=== PATIENT | male | born 1965 | race Caucasian/White ===

== ENCOUNTER 2019-06-18 10:44 | Inpatient (IN) ==
[2019-06-18] MEDS ORDERED: 0.9 % SODIUM CHLORIDE 1,000 ML IV ONE ×2 (11:05→14:13)
--- NOTE | 2019-06-18 11:08 | Emergency Department Note ---
SOB HPI - General Chief Complaint: Shortness of Breath/Dyspnea Stated Complaint: Productive Cough, Congestion Time Seen by Provider: 06/18/19 10:56 Source: patient Mode of arrival: ambulatory Limitations: no limitations - History of Present Illness Patient reports congestion and cough and shortness of breath for about a week. He has had a temperature 99.9. Was seen here last evening and then had a phone call with recommendation for him to come back to the emergency room. There is a left lower lobe pneumonia that has been diagnosed. It was thought to be viral a nd he was sent home both from [facility] a number of days ago as well as last evening. Patient reports being exposed to influenza B from his son last week. He thinks probably he has gotten over influenza now has a pneumonia. He has taken Advil and Robitussin. He has been experiencing fevers, chills, sweats. He denies sore throat or runny nose. He has had some increase in phlegm with purulence and blood in it as well as feeling short of breath and coughing. REVIEW OF SYSTEMS: Has had some nausea. No vomiting. Has had some mucousy gagging up from almost like vomiting but more just gagging up some phlegm. Has had mucousy diarrhea today. Has had some lightheaded/dizziness. - Related Data Previous Rx's Medication Instructions Recorded Levofloxacin [Levaquin] 750 mg PO DAILY #10 tab 06/18/19 Allergies Allergy/AdvReac Type Severity Reaction Status Date / Time No Known Drug Allergies Allergy Unverified 06/17/19 20:05 Past Medical History - Past Medical History Medical history: Denies: DM - Social History smoking status: Former smoker Alcohol use: Reports: Occasionally Drug use: Reports: none. Denies: marijuana Physical Exam Limitations: no limitations General appearance: alert, in no apparent distress, malaise (moderate) Head: atraumatic, normocephalic Eye: Present: EOMI ENT: Present: mucous membranes moist Neck: Present: trachea midline. Absent: lymphadenopathy, thyromegaly Respiratory: Present: rales/crackles (With Pap wheezes and increased transmission in the left base.). Absent: respiratory distress, wheezes, stridor, accessory muscle use, prolonged expiratory phase Cardiovascular: Present: regular rate, normal rhythm, tachycardia. Absent: systolic murmur, diastolic murmur Abdominal: Present: soft. Absent: distention, tenderness, guarding, rebound, r igidity, organomegaly, mass Extremities: Absent: cyanosis, clubbing Neurological: Present: alert, oriented X3 Psychiatric: Present: serious. Absent: agitated, anxious, poor eye contact Skin: Present: warm, dry Course Vital Signs Temperature 99.9 F H 06/18/19 10:45 Pulse Rate 118 H 06/18/19 10:45 Respiratory Rate 22 06/18/19 10:45 Blood Pressure 109/74 06/18/19 10:45 Pulse Oximetry (%) 95 06/18/19 10:45 Temperature 99.4 F H 06/18/19 13:06 Pulse Rate 127 H 06/18/19 13:30 Respiratory Rate 33 H 06/18/19 13:30 Blood Pressure 124/87 06/18/19 13:30 Pulse Oximetry (%) 95 06/18/19 13:30 Shortness of Breath/Dyspnea - [facility] Narrative Medical decision making narrative: 10:57 AM - patient interviewed and examined. Left lower lobe pneumonia with tachycardia. Will need to do some basic labs. 11:45 AM - patient complained of some left-sided chest discomfort. This could be is pneumonia but given his age of 54 and EKG ordered. Results demonstrate sinus tachycardia but otherwise unremarkable. 1 mm elevated J-point takeoff in V3 would be considered unremarkable. Patient demonstrates an elevated white count of 25 with lactic acid of 3.4 and elevated procalcitonin of 5.3. With having the pneumonia, fever, and these abnormalities, he most likely warrants inpatient treatment for pneumonia with early sepsis. I will discuss with hospitalist. 2:04 PM - spoke with Dr. Alexander No, hospitalist, who kindly accepts this patient for inpatient treatment. - Lab Data Lab results reviewed: Yes I reviewed the patient's lab results. Result diagrams: 06/18/19 11:13 06/18/19 11:13 Lab Results 06/18/19 06/18/19 06/18/19 Range/Units 11:13 11:13 11:13 WBC 25.5 H (4.5-11.0) K/mcL RBC 4.43 L (4.50-5.90) M/mcL Hgb 13.0 L (13.5-16.5) g/dL Hct 39.2 L (41.0-55.0) % MCV 88.6 (80.0-100.0) fL MCH 29.4 (26.0-34.0) pg MCHC 33.2 (31.0-36.0) g/dL RDW 14.8 H (11.5-14.5) % Plt Count 202 (140-440) K/mcL MPV 7.2 L (7.4-10.4) fL Gran % 96.4 H (38.0-78.0) % Lymph % (Auto) 1.3 L (15.5-49.0) % Lyman % (Auto) 2.2 (1.0-12.0) % Eos % (Auto) 0.1 (0.0-7.0) % Baso % (Auto) 0 (0.0-2.0) % Gran # 24.6 H (1.8-8.0) K/mcL Lymph # (Auto) 0.3 L (1.5-4.8) K/mcL Lyman # (Auto) 0.5 (0.1-0.9) K/mcL Eos # (Auto) 0 (0.0-0.7) K/mcL Baso # (Auto) 0 (0.0-0.3) K/mcL Differential Comment * VBG Lactic Acid (0.5-2.0) mmol/L Sodium 137 (133-145) mmol/L Potassium 3.1 L (3.3-5.1) mmol/L Chloride 101 (96-108) mmol/L Carbon Dioxide 21 L (22-30) mmol/L Anion Gap 15.0 (8-16) BUN 20 (6-20) mg/dl Creatinine 1.2 (0.7-1.2) mg/dl GFR Calculation 69 Glucose 104 (70-105) mg/dL Calcium 8.2 L (8.6-10.4) mg/dl Total Bilirubin 2.3 H (0.0-1.0) mg/dL AST 26 (0-37) U/l ALT 55 H (0-40) U/l Alkaline Phosphatase 93 (39-117) U/L Total Protein 6.6 (5.9-8.4) gm/dL Albumin 2.7 L (3.2-5.2) gm/dL Globulin 3.9 H (2.2-3.7) gm/dL Albumin/Globulin Ratio 0.7 L (1.0-2.3) Procalcitonin 5.06 (<0.10) ng/mL 06/18/19 Range/Units 11:13 WBC (4.5-11.0) K/mcL RBC (4.50-5.90) M/mcL Hgb (13.5-16.5) g/dL Hct (41.0-55.0) % MCV (80.0-100.0) fL MCH (26.0-34.0) pg MCHC (31.0-36.0) g/dL RDW (11.5-14.5) % Plt Count (140-440) K/mcL MPV (7.4-10.4) fL Gran % (38.0-78.0) % Lymph % (Auto) (15.5-49.0) % Lyman % (Auto) (1.0-12.0) % Eos % (Auto) (0.0-7.0) % Baso % (Auto) (0.0-2.0) % Gran # (1.8-8.0) K/mcL Lymph # (Auto) (1.5-4.8) K/mcL Lyman # (Auto) (0.1-0.9) K/mcL Eos # (Auto) (0.0-0.7) K/mcL Baso # (Auto) (0.0-0.3) K/mcL Differential Comment VBG Lactic Acid 3.5 H (0.5-2.0) mmol/L Sodium (133-145) mmol/L Potassium (3.3-5.1) mmol/L Chloride (96-108) mmol/L Carbon Dioxide (22-30) mmol/L Anion Gap (8-16) BUN (6-20) mg/dl Creatinine (0.7-1.2) mg/dl GFR Calculation Glucose (70-105) mg/dL Calcium (8.6-10.4) mg/dl Total Bilirubin (0.0-1.0) mg/dL AST (0-37) U/l ALT (0-40) U/l Alkaline Phosphatase (39-117) U/L Total Protein (5.9-8.4) gm/dL Albumin (3.2-5.2) gm/dL Globulin (2.2-3.7) gm/dL Albumin/Globulin Ratio (1.0-2.3) Procalcitonin (<0.10) ng/mL - Radiology Data Radiology results reviewed: Yes I reviewed the patient's radiology results. - EKG Data EKG attestation: Yes There are no EKG findings of acute coronary syndrome, Yes This EKG will be read by computer repairer Disposition Pt seen by [employer]/PA only: No Clinical Impression: LLL pneumonia Qualifiers: Pneumonia type: due to unspecified organism Qualified Code(s): J18.9 - Pneumonia, unspecified organism Disposition: Xfer As Inpt ([facility]) Condition: Fair Referrals: No,PCP [Primary Care Provider] -
[2019-06-18 11:47] LABS: Basophils # (Auto) 0 K/mcL (0.0-0.3); Basophils % (Auto) 0 % (0.0-2.0); Eosinophils # (Auto) 0 K/mcL (0.0-0.7); Eosinophils % (Auto) 0.1 % (0.0-7.0); Granulocytes % (Auto) 96.4 % (38.0-78.0); Hematocrit 39.2 % (41.0-55.0); Lymphocytes # (Auto) 0.3 K/mcL (1.5-4.8); Lymphocytes % (Auto) 1.3 % (15.5-49.0); Mean Cell Volume 88.6 fL (80.0-100.0); Mean Corpuscular HGB Conc 33.2 g/dL (31.0-36.0); Mean Platelet Volume 7.2 fL (7.4-10.4); Monocytes # (Auto) 0.5 K/mcL (0.1-0.9); Monocytes % (Auto) 2.2 % (1.0-12.0); Platelet Count 202 K/mcL (140-440); RBC 4.43 M/mcL (4.50-5.90); Red Cell Distribution Width 14.8 % (11.5-14.5); WBC 25.5 K/mcL (4.5-11.0)
[2019-06-18 12:07] LABS: ALT/SGPT 55 U/l (0-40); AST/SGOT 26 U/l (0-37); Albumin 2.7 gm/dL (3.2-5.2); Albumin/Globulin Ratio 0.7 (1.0-2.3); Alkaline Phosphatase 93 U/L (39-117); Bilirubin,Total 2.3 mg/dL (0.0-1.0); Blood Urea Nitrogen 20 mg/dl (6-20); Calcium 8.2 mg/dl (8.6-10.4); Carbon Dioxide 21 mmol/L (22-30); Chloride 101 mmol/L (96-108); Globulin 3.9 gm/dL (2.2-3.7); Glomerular Filtration Rate 69; Glucose 104 mg/dL (70-105)
[2019-06-18] MEDS ORDERED: LEVOFLOXACIN 750 MG TABLET PO ONE (12:42)
[2019-06-18] MEDS ORDERED: KETOROLAC 15 MG/ML VIAL IV ONE (13:10)
--- NOTE | 2019-06-18 14:20 | Internal Med History&Physical ---
Medical - H&P: HPI Patient information: Note initiated : 06/18/19 at 2:13 pm Service Date, if different from initiated Date: [] Patient: Raul Perez 54 y/o M admitted on for Productive Cough, Congestion. Chief Complaint: [] History of present illness: Mr. Perez is a 54 year old M The ED with weakness malaise cough shortness of breath. Patient is about 2 weeks ago son had the flu and he developed similar symptoms including body aches headache weakness. At one point he felt he was getting better and then he suddenly became worse developing a productive cough worsening headache increased weakness. And into [facility] on the and was discharged with supportive care. Presented to our ED on started on Levaquin but today feeling much worse than yesterday. He feels like he can barely stand and steady almost fell when he when he stood up to go the bathroom. Cough is productive of thick yellow-green sputum. Feels short of breath. He has a left lower lateral chest wall pain which is described as dull achy as well as sharp and is constant with nothing improving. He has occasional nausea. Planes of lightheadedness. Chest x-ray from yesterday shows moderate sized left lower lobe infiltrate. His pro-Giovani is elevated at 5 and his lactate was elevated 3.2. Leukocytosis of 25. Review of Systems: Positives as above. Denies fever/chills/vomiting/chest pain/cough/diarrhea. Remaining 10 point review of system reviewed negative Medical - H&P: PMH Medical history: Past medical history: None Past surgical history: Tonsillectomy Family: Mother and father healthy Social history: Patient quit smoking 20 years ago Drinks alcohol socially Uses daily marijuana Lives at home with family Medical - H&P: Meds Home Medications Medication Instructions Recorded Confirmed Type Levofloxacin [Levaquin] 750 mg PO DAILY #10 tab 06/18/19 06/18/19 Rx Allergies Allergy/AdvReac Type Severity Reaction Status Date / Time No Known Drug Allergies Allergy Unverified 06/17/19 20:05 Medical - H&P: Exam - Constitutional Vitals: Temp Pulse Resp BP Pulse Ox 99.4 F H 127 H 33 H 124/87 95 06/18/19 13:06 06/18/19 13:30 06/18/19 13:30 06/18/19 13:30 06/18/19 13:30 Exam: General: Alert, Awake, No acute Distress Eyes/N/T: EOMI, PERRL, DMM Head/Neck: neck supple, normocephalic atraumatic CV: RRR, No murmurs, normal s1/s2 Pulm: bronchial breath sounds left lower half, no wheezing Abd: soft, nontender, +BS x4 Ext: no clubbing/cyanosis/edema Neuro: Alert, no focal deficits, moves all extremities, CN 2-12 grossly intact, symmetrical strength b/l upper/lower, sensations intact b/l upper/lower Skin: warm/dry Medical - H&P: Reslt - Labs CBC & Chem 7: 06/18/19 11:13 06/18/19 11:13 Labs: Short CBC 06/18/19 Range/Units 11:13 WBC 25.5 H (4.5-11.0) K/mcL Hgb 13.0 L (13.5-16.5) g/dL Hct 39.2 L (41.0-55.0) % Plt Count 202 (140-440) K/mcL BMP 06/18/19 11:13 Sodium 137 Potassium 3.1 L Chloride 101 Carbon Dioxide 21 L BUN 20 Creatinine 1.2 Glucose 104 Calcium 8.2 L Liver Function 06/18/19 Range/Units 11:13 Total Bilirubin 2.3 H (0.0-1.0) mg/dL AST 26 (0-37) U/l ALT 55 H (0-40) U/l Alkaline Phosphatase 93 (39-117) U/L Albumin 2.7 L (3.2-5.2) gm/dL - Impressions Left lower lobe infiltrate chest x-ray Medical - H&P: A/P - Narrative A/P Narrative: A: *PNA, Secondary post-influenza; Dyspnea: *Influenza B (+): *Sepsis: *Lethargy/Gen weakness: *Volume depletion: *Hypokalemia: * P: -Vanco/levaquin, d/c vanco when SC/mrsa screen back -Tamiflu -BC pending -MRSA screen -IVF's -f/u lactate -Replete electrolytes - -ppx: Lovenox
[2019-06-18] MEDS ORDERED: VANCOMYCIN PER PHARMACY IV ONE ×2 (14:33→15:10)
[2019-06-18] MEDS ORDERED: POLYETHYLENE GLYCOL 3350 17 GM PACKET PO PRN (15:10)
[2019-06-18] MEDS ORDERED: POTASSIUM CHLORIDE 20 MEQ PACKET PO ONE (15:10)
[2019-06-18] MEDS ORDERED: SENNOSIDES 1 TABLET PO PRN (15:10)
[2019-06-18] MEDS ORDERED: POTASSIUM CHLORIDE 20 MEQ TABLET PO PRN ×2 (15:10)
[2019-06-18] MEDS ORDERED: MAGNESIUM SULFATE 2 GM/50 ML BAG IV PRN (15:10)
[2019-06-18] MEDS ORDERED: ACETAMINOPHEN 325 MG TABLET PO PRN (15:10)
[2019-06-18] MEDS ORDERED: VANCOMYCIN PER PHARMACY IV SCH (15:10)
[2019-06-18] MEDS ORDERED: POTASSIUM CHLORIDE 40 MEQ in DEXTROSE 5% IN WATER 500 ML IV PRN (15:10)
[2019-06-18] MEDS ORDERED: LEVOFLOXACIN 750 MG/150 ML BAG IV SCH (15:10)
[2019-06-18] MEDS ORDERED: IPRATROPIUM/ALBUTEROL 3 ML AMPUL.NEB NEB PRN (15:10)
[2019-06-18] MEDS ORDERED: KETOROLAC 10 MG TABLET PO PRN (15:10)
[2019-06-18] MEDS: 0.9 % SODIUM CHLORIDE 1,000 ML IV SCH (15:26)
[2019-06-18] MEDS ORDERED: VANCOMYCIN 1,500 MG in 0.9 % SODIUM CHLORIDE 500 ML IV ONE (15:30)
[2019-06-18] MEDS: ACETAMINOPHEN 1,000 MG/100 ML BOTTLE IV PRN (15:30)
[2019-06-18] MEDS: ONDANSETRON 4 MG/2 ML VIAL IV PRN (15:47)
[2019-06-18] MEDS: PIPERACILLIN SODIUM/TAZOBACTAM 3.375 GM in DEXTROSE 5% IN WATER 50 ML IV SCH ×2 (17:18→23:53)
[2019-06-18] MEDS: HYDROcodone/APAP 5/325MG TABLET PO PRN ×2 (17:27→21:05)
[2019-06-18] MEDS: OSELTAMIVIR PHOSPHATE 75 MG CAPSULE PO SCH (21:05)
[2019-06-18] MEDS: 0.9 % SODIUM CHLORIDE 10 ML SYRINGE IV SCH (21:06)
[2019-06-18] MEDS: DOCUSATE SODIUM 100 MG CAPSULE PO SCH (21:06)
[2019-06-18] MEDS ORDERED: VANCOMYCIN 500 MG in 0.9 % SODIUM CHLORIDE 100 ML IV ONE (23:00)
[2019-06-19] MEDS: HYDROcodone/APAP 5/325MG TABLET PO PRN ×3 (01:32→20:51)
[2019-06-19] MEDS: 0.9 % SODIUM CHLORIDE 1,000 ML IV SCH (01:33)
[2019-06-19] MEDS: ACETAMINOPHEN 1,000 MG/100 ML BOTTLE IV PRN (01:36)
[2019-06-19] MEDS: PIPERACILLIN SODIUM/TAZOBACTAM 3.375 GM in DEXTROSE 5% IN WATER 50 ML IV SCH ×4 (05:46→23:28)
[2019-06-19] MEDS: 0.9 % SODIUM CHLORIDE 10 ML SYRINGE IV SCH ×3 (05:47→20:44)
[2019-06-19 06:17] LABS: Hematocrit 33.6 % (41.0-55.0); Hemoglobin 11.3 g/dL (13.5-16.5); Mean Cell Volume 88.7 fL (80.0-100.0); Mean Corpuscular HGB Conc 33.7 g/dL (31.0-36.0); Mean Platelet Volume 7.1 fL (7.4-10.4); Platelet Count 202 K/mcL (140-440); RBC 3.79 M/mcL (4.50-5.90); Red Cell Distribution Width 15.1 % (11.5-14.5); WBC 21.3 K/mcL (4.5-11.0)
[2019-06-19 06:40] LABS: ALT/SGPT 37 U/l (0-40); AST/SGOT 21 U/l (0-37); Albumin 2.1 gm/dL (3.2-5.2); Albumin/Globulin Ratio 0.6 (1.0-2.3); Alkaline Phosphatase 85 U/L (39-117); Bilirubin,Direct 1.1 mg/dL (0.0-0.3); Bilirubin,Total 1.5 mg/dL (0.0-1.0); Blood Urea Nitrogen 16 mg/dl (6-20); Calcium 7.6 mg/dl (8.6-10.4); Carbon Dioxide 20 mmol/L (22-30); Chloride 108 mmol/L (96-108); Globulin 3.4 gm/dL (2.2-3.7); Glomerular Filtration Rate 97; Glucose 103 mg/dL (70-105); Lactate Dehydrogenase 196 U/L (94-250); Phosphorous 2.6 mg/dL (2.7-4.5); Triglycerides 100 mg/dl (<150); Uric Acid 2.2 mg/dL (2.5-8.0)
[2019-06-19 06:54] LABS: Band Neutrophils % 24 % (0-10); Dohle Bodies 1+ (NONE SEEN); Lymphocytes % 6 % (15-49); Monocytes % (Manual) 4 % (1-12); Platelet Estimate NORMAL (NORMAL); RBC Morphology NORMAL (NORMAL); Segmented Neutrophils % 66 % (38-78); Toxic Granulation 1+ (NONE SEEN)
[2019-06-19] MEDS ORDERED: POTASSIUM CHLORIDE 20 MEQ TABLET PO ONE (07:45)
--- NOTE | 2019-06-19 07:46 | Internal Med Progress Note ---
Medical - PN: Subj Patient information: Note initiated : 06/19/19 at 7:41 am Service Date, if different from initiated Date: [] Patient: Raul Perez a 54 y/o M admitted on 06/18/19 for Productive Cough, Congestion. Chief Complaint: [] Interval history: Mr. Perez is a 54 year old M The ED with weakness malaise cough shortness of breath. Patient is about 2 weeks ago son had the flu and he developed similar symptoms including body aches headache weakness. At one point he felt he was getting better and then he suddenly became worse developing a productive cough worsening headache increased weakness. And into [facility] on the and was discharged with supportive care. Presented to our ED on started on Levaquin but today feeling much worse than yesterday. He feels like he can barely stand and steady almost fell when he when he stood up to go the bathroom. Cough is productive of thick yellow-green sputum. Feels short of breath. He has a left lower lateral chest wall pain which is described as dull achy as well as sharp and is constant with nothing improving. He has occasional nausea. Planes of lightheadedness. Chest x-ray from yesterday shows moderate sized left lower lobe infiltrate. His pro-Giovani is elevated at 5 and his lactate was elevated 3.2. Leukocytosis of 25. 06/19 Slept okay. Feeling better today. Left lower lateral chest pain improving. Has some nausea but no vomiting. Occasional coughing. Denies shortness of breath. Review of Systems: denies headache/fever/chills/nausea/vomiting/chest or abdominal pain/iarrhea. Otherwise see above. - Constitutional Vitals: Vital Signs Temp Pulse Resp BP Pulse Ox 99.1 F H 105 H 24 H 107/71 94 06/19/19 04:00 06/19/19 05:00 06/19/19 05:00 06/19/19 05:00 06/19/19 05:00 Period Temp Pulse Resp BP Sys/Rm Pulse Ox Last 24 Hr 98.5 F-102.9 F 105-132 19-38 103-138/65-101 91-98 Intake and Output 06/18/19 06/19/19 06/19/19 21:59 05:59 13:59 Intake Total 1390 1750 50 Output Total 350 350 650 Balance 1040 1400 -600 Weight 73.482 kg Intake & Output: Intake & Output 06/18/19 06/19/19 06/19/19 21:59 05:59 13:59 Intake Total 1390 1750 50 Output Total 350 350 650 Balance 1040 1400 -600 Weight 73.482 kg Intake: IV 1150 1750 50 Sodium Chloride 0.9% 1,000 ml @ 1000 1000 100 mls/hr IV .Q10H QUYEN Rx#: [id number] Zosyn 3.375 gm In Dextrose 5% 50 50 50 in Water 50 ml @ 100 mls/hr IV Q6H QUYEN Rx#:[id number] Vancomycin 500 mg In Sodium 100 Chloride 0.9% 100 ml @ 100 mls/ hr IV ONCE ONE Rx#:[id number] Vancomycin 1,500 mg In Sodium 500 Chloride 0.9% 500 ml @ 333.3 mls/hr IV ONCE ONE Rx#: [id number] Oral 240 Output: Void Amount 350 350 650 Other: Meal Dinner Percent of Meal Consumed 75% Feeding Ability Independent Urine Appearance Clear Clear Urine Color Dark Yellow Dark Yellow Exam: General: Alert, Awake, No acute Distress Eyes/N/T: EOMI, Head/Neck: neck supple, CV: RRR, No murmurs, Pulm: mild rhonchi LLL, no wheezing Abd: soft, nontender, +BS x4 Ext: no clubbing/cyanosis/edema Neuro: Alert, no focal deficits, moves all extremities, Skin: warm/dry Medical - PN: Obj Da - Labs CBC & Chem 7: 06/19/19 04:05 06/19/19 04:05 Labs: Abnormal Lab Results 06/19/19 06/19/19 06/18/19 04:05 04:05 17:08 WBC 21.3 H RBC 3.79 L Hgb 11.3 L Hct 33.6 L RDW 15.1 H MPV 7.1 L Gran % Lymph % (Auto) Gran # Lymph # (Auto) Band Neutrophils % 24 H Lymphocytes % 6 L WBC Morphology Abnorm A Toxic Granulation 1+ A Dohle Bodies 1+ A VBG Lactic Acid 2.3 H Potassium 3.1 L Carbon Dioxide 20 L Uric Acid 2.2 L Calcium 7.6 L Phosphorus 2.6 L Total Bilirubin 1.5 H Direct Bilirubin 1.1 H ALT Total Protein 5.5 L Albumin 2.1 L Globulin Albumin/Globulin Ratio 0.6 L 06/18/19 06/18/19 06/18/19 11:13 11:13 11:13 WBC 25.5 H RBC 4.43 L Hgb 13.0 L Hct 39.2 L RDW 14.8 H MPV 7.2 L Gran % 96.4 H Lymph % (Auto) 1.3 L Gran # 24.6 H Lymph # (Auto) 0.3 L Band Neutrophils % Lymphocytes % WBC Morphology Toxic Granulation Dohle Bodies VBG Lactic Acid 3.5 H Potassium 3.1 L Carbon Dioxide 21 L Uric Acid Calcium 8.2 L Phosphorus Total Bilirubin 2.3 H Direct Bilirubin ALT 55 H Total Protein Albumin 2.7 L Globulin 3.9 H Albumin/Globulin Ratio 0.7 L Meds: Medications Acetaminophen (Tylenol) 650 mg PO Q6HP PRN PRN Reason: PAIN/FEVER > 101 Hydrocodone Bitart/Acetaminophen (Vermillion 5/325mg) 1 tab PO Q4HP PRN PRN Reason: PAIN LEVEL 3-6 Last Admin: 06/19/19 01:32 Dose: 1 tab Documented by: Albuterol/Ipratropium (Duoneb) 3 ml NEB Q4HP PRN PRN Reason: Shortness Of Breath Docusate Sodium (Colace) 100 mg PO BID [facility] Last Admin: 06/18/19 21:06 Dose: Not Given Documented by: Enoxaparin Sodium (Lovenox) 40 mg SQ DAILY [facility] Potassium Chloride 40 meq/ (Dextrose) 520 mls @ 130 mls/hr IV UD PRN PRN Reason: Potassium < 3 Magnesium Sulfate (Magnesium Sulfate) 2 gm in 50 mls @ 50 mls/hr IV UD PRN PRN Reason: Magnesium </= 1.6 Sodium Chloride (Sodium Chloride 0.9%) 1,000 mls @ 100 mls/hr IV .Q10H QUYEN Stop: 06/19/19 11:09 Last Admin: 06/19/19 01:33 Dose: 100 mls/hr Documented by: Vancomycin HCl 1,500 mg/ (Sodium Chloride) 500 mls @ 333.3 mls/hr IV Q12H QUYEN Acetaminophen (Ofirmev) 1,000 mg in 100 mls @ 130 mls/hr IV Q6HP PRN; Protocol PRN Reason: PAIN/FEVER > 101 Last Infusion: 06/19/19 04:05 Dose: Infused Documented by: Piperacillin Sod/Tazobactam (Sod 3.375 gm/ Dextrose) 50 mls @ 100 mls/hr IV Q6H [facility]; Protocol Last Infusion: 06/19/19 07:19 Dose: Infused Documented by: Ketorolac Tromethamine (Toradol) 10 mg PO Q6HP PRN PRN Reason: Per Pain Protocol Stop: 06/20/19 14:00 Morphine Sulfate (Morphine) 1 - 4 mg IV Q3HP PRN; Protocol PRN Reason: Per Pain Protocol Last Admin: 06/19/19 01:33 Dose: 2 mg Documented by: Ondansetron HCl (Zofran) 4 mg IV Q4HP PRN PRN Reason: Nausea And Vomiting Last Admin: 06/18/19 15:47 Dose: 4 mg Documented by: Oseltamivir Phosphate (Tamiflu) 75 mg PO BID [facility] Last Admin: 06/18/19 21:05 Dose: 75 mg Documented by: Polyethylene Glycol (Miralax) 17 gm PO DAILYP PRN PRN Reason: Constipation Potassium Chloride (Kdur) 40 meq PO UD PRN PRN Reason: Potssium is 3-3.5 Potassium Chloride (Kdur) 40 meq PO UD PRN PRN Reason: Potassium < 3 Senna (Senokot) 2 tab PO DAILYP PRN PRN Reason: Constipation Sodium Chloride (Saline Flush) 10 ml IV Q8 [facility] Last Admin: 06/19/19 05:47 Dose: 10 ml Documented by: Vancomycin HCl (Vancomycin Per Pharmacy) 1 order IV UD [facility]; Protocol Medical - PN: A/P - Time Spent With Patient Total time spent is greater than 50% in coordination of care (as documented) at patient's floor/unit and/or counseling patient: - Narrative A/P Narrative: A: *PNA (LLL), Secondary post-influenza; Dyspnea: -afebrile o/n, PCT improving -MRSA screen neg, *Sepsis: -leukocytosis improving, lactic acidosis resolved *Lethargy/Gen weakness: improving *Pleuritic Left lower-lat chest pain: 2/2 above, improving *Influenza B (+): *Volume depletion: resolved *Hypokalemia: * P: -levaquin/zosyn, pending SC/BC -Tamiflu -IVF's d/c -Replete electrolytes -pt -ppx: Lovenox Medical - PN: Qual - VTE Deep Vein Thrombosis/Pulmonary Embolism Present on Admission: No
[2019-06-19] MEDS ORDERED: VANCOMYCIN 1,500 MG in 0.9 % SODIUM CHLORIDE 500 ML IV SCH (09:00)
[2019-06-19] MEDS ORDERED: FLU VACC QS2019-20(6MOS UP)/PF 60 MCG/0.5 ML SYRINGE IM ONE (10:00)
[2019-06-19] MEDS ORDERED: LEVOFLOXACIN 750 MG/150 ML BAG IV SCH (10:00)
[2019-06-19] MEDS: ENOXAPARIN 40 MG/0.4 ML SYRINGE SQ SCH (10:09)
[2019-06-19] MEDS: OSELTAMIVIR PHOSPHATE 75 MG CAPSULE PO SCH ×2 (10:37→20:43)
[2019-06-19] MEDS: DOCUSATE SODIUM 100 MG CAPSULE PO SCH ×2 (10:38→20:43)
[2019-06-19] MEDS: LEVOFLOXACIN 750 MG/150 ML BAG IV SCH (12:00)
[2019-06-19] MEDS: ONDANSETRON 4 MG/2 ML VIAL IV PRN (21:13)
[2019-06-20] MEDS ORDERED: BENZONATATE 100 MG CAPSULE PO PRN (01:24)
[2019-06-20] MEDS: PIPERACILLIN SODIUM/TAZOBACTAM 3.375 GM in DEXTROSE 5% IN WATER 50 ML IV SCH ×3 (05:27→17:41)
[2019-06-20] MEDS: 0.9 % SODIUM CHLORIDE 10 ML SYRINGE IV SCH ×3 (05:28→22:19)
[2019-06-20 06:37] LABS: Hematocrit 35.4 % (41.0-55.0); Hemoglobin 11.8 g/dL (13.5-16.5); Mean Cell Volume 88.5 fL (80.0-100.0); Mean Corpuscular HGB Conc 33.4 g/dL (31.0-36.0); Mean Platelet Volume 6.9 fL (7.4-10.4); Platelet Count 272 K/mcL (140-440); Red Cell Distribution Width 15.4 % (11.5-14.5); WBC 18.9 K/mcL (4.5-11.0)
[2019-06-20 06:46] LABS: ALT/SGPT 32 U/l (0-40); AST/SGOT 25 U/l (0-37); Albumin/Globulin Ratio 0.5 (1.0-2.3); Alkaline Phosphatase 158 U/L (39-117); Blood Urea Nitrogen 15 mg/dl (6-20); Calcium 8.1 mg/dl (8.6-10.4); Carbon Dioxide 23 mmol/L (22-30); Chloride 101 mmol/L (96-108); Globulin 3.9 gm/dL (2.2-3.7); Glomerular Filtration Rate 97; Glucose 75 mg/dL (70-105); Lactate Dehydrogenase 305 U/L (94-250); Phosphorous 2.5 mg/dL (2.7-4.5); Triglycerides 146 mg/dl (<150); Uric Acid 2.4 mg/dL (2.5-8.0)
[2019-06-20 06:59] LABS: Bilirubin,Direct 0.5 mg/dL (0.0-0.3)
[2019-06-20 07:47] LABS: Anisocytosis FEW (NONE SEEN); Band Neutrophils % 3 % (0-10); Eosinophils % (Manual) 1 % (0-7); Lymphocytes % 8 % (15-49); Monocytes % (Manual) 4 % (1-12); Platelet Estimate NORMAL (NORMAL); RBC Morphology ABNORM (NORMAL); Segmented Neutrophils % 84 % (38-78)
[2019-06-20] MEDS ORDERED: POTASSIUM CHLORIDE 40 MEQ in DEXTROSE 5% IN WATER 500 ML IV ONE (08:22)
[2019-06-20] MEDS ORDERED: POTASSIUM CHLORIDE 20 MEQ TABLET PO ONE (08:22)
--- NOTE | 2019-06-20 08:24 | Internal Med Progress Note ---
Medical - PN: Subj Patient information: Note initiated : 06/20/19 at 8:20 am Service Date, if different from initiated Date: [] Patient: Raul Perez a 54 y/o M admitted on 06/18/19 for Productive Cough, Congestion. Chief Complaint: [] Interval history: Mr. Perez is a 54 year old M The ED with weakness malaise cough shortness of breath. Patient is about 2 weeks ago son had the flu and he developed similar symptoms including body aches headache weakness. At one point he felt he was getting better and then he suddenly became worse developing a productive cough worsening headache increased weakness. And into [facility] on the and was discharged with supportive care. Presented to our ED on started on Levaquin but today feeling much worse than yesterday. He feels like he can barely stand and steady almost fell when he when he stood up to go the bathroom. Cough is productive of thick yellow-green sputum. Feels short of breath. He has a left lower lateral chest wall pain which is described as dull achy as well as sharp and is constant with nothing improving. He has occasional nausea. Planes of lightheadedness. Chest x-ray from yesterday shows moderate sized left lower lobe infiltrate. His pro-Giovani is elevated at 5 and his lactate was elevated 3.2. Leukocytosis of 25. 06/19 Slept okay. Feeling better today. Left lower lateral chest pain improving. Has some nausea but no vomiting. Occasional coughing. Denies shortness of breath. 06/20 Coughing productive sputum as usual. Poor sleep because of cough and left chest pleuritic pain still severe at times. Leukocytosis slowly improving. Review of Systems: denies headache/fever/chills/nausea/vomiting/abdominal pain/diarrhea. Otherwise see above. - Constitutional Vitals: Vital Signs Temp Pulse Resp BP Pulse Ox 99.9 F H 100 H 28 H 140/90 92 06/20/19 04:01 06/20/19 04:07 06/20/19 04:07 06/20/19 04:01 06/20/19 04:07 Period Temp Pulse Resp BP Sys/Rm Pulse Ox Last 24 Hr 99.8 F-99.9 F 87-110 18-29 108-146/71-100 92-98 Intake and Output 06/19/19 06/20/19 06/20/19 21:59 05:59 13:59 Intake Total 1050 50 650 Output Total 600 550 Balance 450 -500 650 Weight 73.482 kg Intake & Output: Intake & Output 06/19/19 06/20/19 06/20/19 21:59 05:59 13:59 Intake Total 1050 50 650 Output Total 600 550 Balance 450 -500 650 Weight 73.482 kg Intake: IV 1050 50 50 Sodium Chloride 0.9% 1,000 ml @ 1000 100 mls/hr IV .Q10H [facility] Rx#: [id number] Zosyn 3.375 gm In Dextrose 5% 50 50 50 in Water 50 ml @ 100 mls/hr IV Q6H [facility] Rx#:[id number] Oral 600 Output: Void Amount 600 550 Other: Meal Dinner Percent of Meal Consumed 25% Urine Appearance Clear Clear Urine Color Light Andria Light Andria Dark Andria Exam: General: Alert, Awake, No acute Distress Eyes/N/T: EOMI, Head/Neck: neck supple, CV: RRR, No murmurs, Pulm: mild rhonchi LLL, no wheezing Abd: soft, nontender, +BS x4 Ext: no clubbing/cyanosis/edema Neuro: Alert, no focal deficits, moves all extremities, Skin: warm/dry Medical - PN: Obj Da - Labs CBC & Chem 7: 06/20/19 04:15 06/20/19 04:15 Labs: Abnormal Lab Results 06/20/19 06/20/19 06/19/19 04:15 04:15 04:05 WBC 18.9 H RBC 4.00 L Hgb 11.8 L Hct 35.4 L RDW 15.4 H MPV 6.9 L Gran % Lymph % (Auto) Gran # Lymph # (Auto) Seg Neutrophils % 84 H Band Neutrophils % Lymphocytes % 8 L WBC Morphology Toxic Granulation Dohle Bodies RBC Morphology Abnorm A Anisocytosis Few A VBG Lactic Acid Potassium 2.7 L* 3.1 L Carbon Dioxide 20 L Uric Acid 2.4 L 2.2 L Calcium 8.1 L 7.6 L Phosphorus 2.5 L 2.6 L Total Bilirubin 1.5 H Direct Bilirubin 0.5 H 1.1 H GGT 91 H ALT Alkaline Phosphatase 158 H Lactate Dehydrogenase 305 H Total Protein 5.5 L Albumin 2.0 L 2.1 L Globulin 3.9 H Albumin/Globulin Ratio 0.5 L 0.6 L 06/19/19 06/18/19 06/18/19 04:05 17:08 11:13 WBC 21.3 H RBC 3.79 L Hgb 11.3 L Hct 33.6 L RDW 15.1 H MPV 7.1 L Gran % Lymph % (Auto) Gran # Lymph # (Auto) Seg Neutrophils % Band Neutrophils % 24 H Lymphocytes % 6 L WBC Morphology Abnorm A Toxic Granulation 1+ A Dohle Bodies 1+ A RBC Morphology Anisocytosis VBG Lactic Acid 2.3 H 3.5 H Potassium Carbon Dioxide Uric Acid Calcium Phosphorus Total Bilirubin Direct Bilirubin GGT ALT Alkaline Phosphatase Lactate Dehydrogenase Total Protein Albumin Globulin Albumin/Globulin Ratio 06/18/19 06/18/19 11:13 11:13 WBC 25.5 H RBC 4.43 L Hgb 13.0 L Hct 39.2 L RDW 14.8 H MPV 7.2 L Gran % 96.4 H Lymph % (Auto) 1.3 L Gran # 24.6 H Lymph # (Auto) 0.3 L Seg Neutrophils % Band Neutrophils % Lymphocytes % WBC Morphology Toxic Granulation Dohle Bodies RBC Morphology Anisocytosis VBG Lactic Acid Potassium 3.1 L Carbon Dioxide 21 L Uric Acid Calcium 8.2 L Phosphorus Total Bilirubin 2.3 H Direct Bilirubin GGT ALT 55 H Alkaline Phosphatase Lactate Dehydrogenase Total Protein Albumin 2.7 L Globulin 3.9 H Albumin/Globulin Ratio 0.7 L Meds: Medications Acetaminophen (Tylenol) 650 mg PO Q6HP PRN PRN Reason: PAIN/FEVER > 101 Hydrocodone Bitart/Acetaminophen ([place] 5/325mg) 1 tab PO Q4HP PRN PRN Reason: PAIN LEVEL 3-6 Last Admin: 06/19/19 20:51 Dose: 1 tab Documented by: Albuterol/Ipratropium (Duoneb) 3 ml NEB Q4HP PRN PRN Reason: Shortness Of Breath Benzonatate (Tessalon) 200 mg PO TIDP PRN PRN Reason: Cough Last Admin: 06/20/19 01:28 Dose: 200 mg Documented by: Docusate Sodium (Colace) 100 mg PO BID [facility] Last Admin: 06/19/19 20:43 Dose: 100 mg Documented by: Enoxaparin Sodium (Lovenox) 40 mg SQ DAILY [facility] Last Admin: 06/19/19 10:09 Dose: 40 mg Documented by: Potassium Chloride 40 meq/ (Dextrose) 520 mls @ 130 mls/hr IV UD PRN PRN Reason: Potassium < 3 Magnesium Sulfate (Magnesium Sulfate) 2 gm in 50 mls @ 50 mls/hr IV UD PRN PRN Reason: Magnesium </= 1.6 Acetaminophen (Ofirmev) 1,000 mg in 100 mls @ 130 mls/hr IV Q6HP PRN; Protocol PRN Reason: PAIN/FEVER > 101 Last Infusion: 06/19/19 04:05 Dose: Infused Documented by: Piperacillin Sod/Tazobactam (Sod 3.375 gm/ Dextrose) 50 mls @ 100 mls/hr IV Q6H [facility]; Protocol Last Infusion: 06/20/19 06:00 Dose: Infused Documented by: Levofloxacin (Levaquin) 750 mg in 150 mls @ 100 mls/hr IV Q24H [facility] Last Infusion: 06/19/19 13:52 Dose: Infused Documented by: Ketorolac Tromethamine (Toradol) 10 mg PO Q6HP PRN PRN Reason: Per Pain Protocol Stop: 06/20/19 14:00 Morphine Sulfate (Morphine) 1 - 4 mg IV Q3HP PRN; Protocol PRN Reason: Per Pain Protocol Last Admin: 06/20/19 01:22 Dose: 2 mg Documented by: Ondansetron HCl (Zofran) 4 mg IV Q4HP PRN PRN Reason: Nausea And Vomiting Last Admin: 06/19/19 21:13 Dose: 4 mg Documented by: Oseltamivir Phosphate (Tamiflu) 75 mg PO BID [facility] Last Admin: 06/19/19 20:43 Dose: 75 mg Documented by: Polyethylene Glycol (Miralax) 17 gm PO DAILYP PRN PRN Reason: Constipation Potassium Chloride (Kdur) 40 meq PO UD PRN PRN Reason: Potssium is 3-3.5 Potassium Chloride (Kdur) 40 meq PO UD PRN PRN Reason: Potassium < 3 Senna (Senokot) 2 tab PO DAILYP PRN PRN Reason: Constipation Sodium Chloride (Saline Flush) 10 ml IV Q8 [facility] Last Admin: 06/20/19 05:28 Dose: 10 ml Documented by: Medical - PN: A/P - Time Spent With Patient Total time spent is greater than 50% in coordination of care (as documented) at patient's floor/unit and/or counseling patient: - Narrative A/P Narrative: A: *PNA (LLL), Secondary post-influenza; Dyspnea: -afebrile o/n, PCT improving -MRSA screen neg, *Sepsis: -leukocytosis improving slowly bandemia resolved, lactic acidosis resolved, febrile this morning *Lethargy/Gen weakness: improving *Pleuritic Left lower-lat chest pain: 2/2 above, wax/waning *Influenza B (+): *Volume depletion: resolved *Hypokalemia: * P: -levaquin/zosyn, -CT chest pending -pending SC/BC -Tamiflu -Replete electrolytes -pt -ppx: Lovenox Medical - PN: Qual - VTE Deep Vein Thrombosis/Pulmonary Embolism Present on Admission: No
[2019-06-20] MEDS: LEVOFLOXACIN 750 MG/150 ML BAG IV SCH (09:02)
[2019-06-20] MEDS: HYDROcodone/APAP 5/325MG TABLET PO PRN ×4 (09:07→22:18)
[2019-06-20] MEDS: ENOXAPARIN 40 MG/0.4 ML SYRINGE SQ SCH (09:07)
[2019-06-20] MEDS: DOCUSATE SODIUM 100 MG CAPSULE PO SCH ×2 (09:08→20:47)
[2019-06-20] MEDS: ACETAMINOPHEN 1,000 MG/100 ML BOTTLE IV PRN (09:09)
[2019-06-20] MEDS: OSELTAMIVIR PHOSPHATE 75 MG CAPSULE PO SCH ×2 (09:14→20:46)
[2019-06-20] MEDS ORDERED: KETOROLAC 10 MG TABLET PO PRN (09:28)
[2019-06-20] MEDS ORDERED: POTASSIUM CHLORIDE 40 MEQ in DEXTROSE 5% IN WATER 500 ML IV PRN (09:28)
[2019-06-20] MEDS ORDERED: IPRATROPIUM/ALBUTEROL 3 ML AMPUL.NEB NEB PRN (09:28)
[2019-06-20] MEDS ORDERED: SENNOSIDES 1 TABLET PO PRN (09:28)
[2019-06-20] MEDS ORDERED: MAGNESIUM SULFATE 2 GM/50 ML BAG IV PRN (09:28)
[2019-06-20] MEDS ORDERED: POTASSIUM CHLORIDE 20 MEQ TABLET PO PRN ×2 (09:28)
[2019-06-20] MEDS ORDERED: ACETAMINOPHEN 1,000 MG/100 ML BOTTLE IV PRN (09:28)
[2019-06-20] MEDS ORDERED: ACETAMINOPHEN 325 MG TABLET PO PRN (09:28)
[2019-06-20] MEDS ORDERED: POLYETHYLENE GLYCOL 3350 17 GM PACKET PO PRN (09:28)
[2019-06-20] MEDS ORDERED: IOPAMIDOL 100 ML BOTTLE IV ONE (10:09)
--- NOTE | 2019-06-20 14:22 | Cat Scan Report ---
History: Pneumonia and left-sided chest pain TECHNIQUE: The chest was imaged following injection of intravenous contrast scanning from the thoracic inlet to the diaphragm. Sagittal, coronal and axial MIPS images were created. The radiation exposure was limited using dose reduction technology. FINDINGS: There is complete consolidation of the left lower lobe. Several air bronchograms are present. There has zones of abnormal decreased attenuation in the consolidated lung parenchyma in the anterior basal segment and medial basal segment left lower lobe. This may represent evolving tissue necrosis. No abscess is present. Mild groundglass alveolar infiltrates are present in the right upper lobe and superior segment right lower lobe. There is relative sparing of the lingula, left upper lobe and right middle lobe. Tiny bilateral layering pleural effusions are present. There are a few small reactive lymph nodes in the mediastinum and left hilum. The heart is normal in size and contour. There is no pericardial effusion. The pulmonary arteries are normal without evidence of pulmonary emboli. IMPRESSION: Severe pneumonia with superimposed atelectasis throughout the left lower lobe. Possible necrosis in the anterior and medial basal segments of the left lower lobe Mild pneumonia in the right upper lobe and superior segment right lower lobe Dr. No was called with the results Interpreted and Authenticated by: Darian Rios 06/20/19
[2019-06-20] MEDS: BENZONATATE 100 MG CAPSULE PO PRN (17:41)
[2019-06-21] MEDS: PIPERACILLIN SODIUM/TAZOBACTAM 3.375 GM in DEXTROSE 5% IN WATER 50 ML IV SCH ×5 (00:39→23:32)
[2019-06-21] MEDS: HYDROcodone/APAP 5/325MG TABLET PO PRN ×3 (04:25→18:00)
[2019-06-21 05:28] LABS: Basophils # (Auto) 0 K/mcL (0.0-0.3); Basophils % (Auto) 0.1 % (0.0-2.0); Eosinophils # (Auto) 0.2 K/mcL (0.0-0.7); Eosinophils % (Auto) 1.1 % (0.0-7.0); Granulocytes % (Auto) 81.6 % (38.0-78.0); Hematocrit 37.5 % (41.0-55.0); Hemoglobin 12.7 g/dL (13.5-16.5); Lymphocytes # (Auto) 1.7 K/mcL (1.5-4.8); Lymphocytes % (Auto) 10.6 % (15.5-49.0); Mean Cell Volume 87.7 fL (80.0-100.0); Mean Corpuscular HGB Conc 33.8 g/dL (31.0-36.0); Mean Platelet Volume 6.7 fL (7.4-10.4); Monocytes % (Auto) 6.6 % (1.0-12.0); Platelet Count 305 K/mcL (140-440); RBC 4.27 M/mcL (4.50-5.90); Red Cell Distribution Width 15.3 % (11.5-14.5); WBC 15.8 K/mcL (4.5-11.0)
[2019-06-21 05:48] LABS: Blood Urea Nitrogen 15 mg/dl (6-20); Calcium 8.5 mg/dl (8.6-10.4); Carbon Dioxide 23 mmol/L (22-30); Chloride 99 mmol/L (96-108); Glomerular Filtration Rate 102; Glucose 81 mg/dL (70-105)
[2019-06-21] MEDS: 0.9 % SODIUM CHLORIDE 10 ML SYRINGE IV SCH ×6 (06:15→23:32)
--- NOTE | 2019-06-21 07:56 | Internal Med Progress Note ---
Medical - PN: Subj Patient information: Note initiated : 06/21/19 at 7:51 am Service Date, if different from initiated Date: [] Patient: Raul Perez a 54 y/o M admitted on 06/18/19 for Productive Cough, Congestion. Chief Complaint: [] Interval history: Mr. Perez is a 54 year old M The ED with weakness malaise cough shortness of breath. Patient is about 2 weeks ago son had the flu and he developed similar symptoms including body aches headache weakness. At one point he felt he was getting better and then he suddenly became worse developing a productive cough worsening headache increased weakness. And into [facility] on the and was discharged with supportive care. Presented to our ED on started on Levaquin but today feeling much worse than yesterday. He feels like he can barely stand and steady almost fell when he when he stood up to go the bathroom. Cough is productive of thick yellow-green sputum. Feels short of breath. He has a left lower lateral chest wall pain which is described as dull achy as well as sharp and is constant with nothing improving. He has occasional nausea. Planes of lightheadedness. Chest x-ray from yesterday shows moderate sized left lower lobe infiltrate. His pro-Giovani is elevated at 5 and his lactate was elevated 3.2. Leukocytosis of 25. 06/19 Slept okay. Feeling better today. Left lower lateral chest pain improving. Has some nausea but no vomiting. Occasional coughing. Denies shortness of breath. 06/20 Coughing productive sputum as usual. Poor sleep because of cough and left chest pleuritic pain still severe at times. Leukocytosis slowly improving. 06/21 Still has cough productive but slowly improving. Shortness of breath with deep breathing otherwise improved. Pleuritic chest pain is improving slowly. Laboratory improving. Still intermittent fevers. Did have an episode of diarrhea this morning. Feeling better overall. Review of Systems: denies headache/fever/chills/nausea/vomiting/abdominal pain. Otherwise see above. - Constitutional Vitals: Vital Signs Temp Pulse Resp BP Pulse Ox 101.6 F H 98 H 22 138/80 92 06/21/19 04:00 06/21/19 04:00 06/21/19 04:00 06/21/19 04:00 06/21/19 04:00 Period Temp Pulse Resp BP Sys/Rm Pulse Ox Last 24 Hr 98.4 F-101.8 F 77-103 16-24 121-149/80-127 92-97 Intake and Output 06/20/19 06/21/19 06/21/19 21:59 05:59 13:59 Intake Total 150 50 50 Output Total 650 525 300 Balance -500 -475 -250 Weight 73.482 kg Intake & Output: Intake & Output 06/20/19 06/21/19 06/21/19 21:59 05:59 13:59 Intake Total 150 50 50 Output Total 650 525 300 Balance -500 -475 -250 Weight 73.482 kg Intake: IV 150 50 50 Zosyn 3.375 gm In Dextrose 5% 50 50 50 in Water 50 ml @ 100 mls/hr IV Q6H [facility] Rx#:[id number] Output: Urine Catheter Amount 325 Void Amount 650 200 300 Other: Urine Appearance Clear Urine Color Straw Dark Yellow Urine Odor Normal # Voids 275 Exam: General: Alert, Awake, No acute Distress Eyes/N/T: EOMI, Head/Neck: neck supple, CV: RRR, No murmurs, Pulm: mild rhonchi LLL and diminished, no wheezing Abd: soft, nontender, +BS x4 Ext: no clubbing/cyanosis/edema Neuro: Alert, no focal deficits, moves all extremities, Skin: warm/dry Medical - PN: Obj Da - Labs CBC & Chem 7: 06/21/19 04:20 06/21/19 04:20 Labs: Abnormal Lab Results 06/21/19 06/21/19 06/20/19 04:20 04:20 04:15 WBC 15.8 H RBC 4.27 L Hgb 12.7 L Hct 37.5 L RDW 15.3 H MPV 6.7 L Gran % 81.6 H Lymph % (Auto) 10.6 L Gran # 12.9 H Lymph # (Auto) [place] # (Auto) 1.0 H Seg Neutrophils % Band Neutrophils % Lymphocytes % WBC Morphology Toxic Granulation Dohle Bodies RBC Morphology Anisocytosis VBG Lactic Acid Potassium 2.7 L* Carbon Dioxide Uric Acid 2.4 L Calcium 8.5 L 8.1 L Phosphorus 2.5 L Total Bilirubin Direct Bilirubin 0.5 H GGT 91 H ALT Alkaline Phosphatase 158 H Lactate Dehydrogenase 305 H Total Protein Albumin 2.0 L Globulin 3.9 H Albumin/Globulin Ratio 0.5 L 06/20/19 06/19/19 06/19/19 04:15 04:05 04:05 WBC 18.9 H 21.3 H RBC 4.00 L 3.79 L Hgb 11.8 L 11.3 L Hct 35.4 L 33.6 L RDW 15.4 H 15.1 H MPV 6.9 L 7.1 L Gran % Lymph % (Auto) Gran # Lymph # (Auto) [place] # (Auto) Seg Neutrophils % 84 H Band Neutrophils % 24 H Lymphocytes % 8 L 6 L WBC Morphology Abnorm A Toxic Granulation 1+ A Dohle Bodies 1+ A RBC Morphology Abnorm A Anisocytosis Few A VBG Lactic Acid Potassium 3.1 L Carbon Dioxide 20 L Uric Acid 2.2 L Calcium 7.6 L Phosphorus 2.6 L Total Bilirubin 1.5 H Direct Bilirubin 1.1 H GGT ALT Alkaline Phosphatase Lactate Dehydrogenase Total Protein 5.5 L Albumin 2.1 L Globulin Albumin/Globulin Ratio 0.6 L 06/18/19 06/18/19 06/18/19 17:08 11:13 11:13 WBC RBC Hgb Hct RDW MPV Gran % Lymph % (Auto) Gran # Lymph # (Auto) [place] # (Auto) Seg Neutrophils % Band Neutrophils % Lymphocytes % WBC Morphology Toxic Granulation Dohle Bodies RBC Morphology Anisocytosis VBG Lactic Acid 2.3 H 3.5 H Potassium 3.1 L Carbon Dioxide 21 L Uric Acid Calcium 8.2 L Phosphorus Total Bilirubin 2.3 H Direct Bilirubin GGT ALT 55 H Alkaline Phosphatase Lactate Dehydrogenase Total Protein Albumin 2.7 L Globulin 3.9 H Albumin/Globulin Ratio 0.7 L 06/18/19 11:13 WBC 25.5 H RBC 4.43 L Hgb 13.0 L Hct 39.2 L RDW 14.8 H MPV 7.2 L Gran % 96.4 H Lymph % (Auto) 1.3 L Gran # 24.6 H Lymph # (Auto) 0.3 L [place] # (Auto) Seg Neutrophils % Band Neutrophils % Lymphocytes % WBC Morphology Toxic Granulation Dohle Bodies RBC Morphology Anisocytosis VBG Lactic Acid Potassium Carbon Dioxide Uric Acid Calcium Phosphorus Total Bilirubin Direct Bilirubin GGT ALT Alkaline Phosphatase Lactate Dehydrogenase Total Protein Albumin Globulin Albumin/Globulin Ratio Meds: Medications Acetaminophen (Tylenol) 650 mg PO Q6HP PRN PRN Reason: PAIN/FEVER > 101 Hydrocodone Bitart/Acetaminophen ([place] 5/325mg) 1 tab PO Q4HP PRN PRN Reason: PAIN LEVEL 3-6 Last Admin: 06/21/19 04:25 Dose: 1 tab Documented by: Albuterol/Ipratropium (Duoneb) 3 ml NEB Q4HP PRN PRN Reason: Shortness Of Breath Benzonatate (Tessalon) 200 mg PO TIDP PRN PRN Reason: Cough Last Admin: 06/20/19 17:41 Dose: 200 mg Documented by: Docusate Sodium (Colace) 100 mg PO BID [facility] Last Admin: 06/20/19 20:47 Dose: Not Given Documented by: Enoxaparin Sodium (Lovenox) 40 mg SQ DAILY [facility] Potassium Chloride 40 meq/ (Dextrose) 520 mls @ 130 mls/hr IV UD PRN PRN Reason: Potassium < 3 Levofloxacin (Levaquin) 750 mg in 150 mls @ 100 mls/hr IV DAILY [facility] Magnesium Sulfate (Magnesium Sulfate) 2 gm in 50 mls @ 50 mls/hr IV UD PRN PRN Reason: Magnesium </= 1.6 Acetaminophen (Ofirmev) 1,000 mg in 100 mls @ 130 mls/hr IV Q6HP PRN; Protocol PRN Reason: PAIN/FEVER > 101 Last Infusion: 06/20/19 19:17 Dose: Infused Documented by: Piperacillin Sod/Tazobactam (Sod 3.375 gm/ Dextrose) 50 mls @ 100 mls/hr IV Q6H [facility]; Protocol Last Infusion: 06/21/19 07:15 Dose: Infused Documented by: Morphine Sulfate (Morphine) 1 - 4 mg IV Q3HP PRN; Protocol PRN Reason: Per Pain Protocol Last Admin: 06/21/19 04:26 Dose: 4 mg Documented by: Ondansetron HCl (Zofran) 4 mg IV Q4HP PRN PRN Reason: Nausea And Vomiting Oseltamivir Phosphate (Tamiflu) 75 mg PO BID [facility] Last Admin: 06/20/19 20:46 Dose: 75 mg Documented by: Polyethylene Glycol (Miralax) 17 gm PO DAILYP PRN PRN Reason: Constipation Potassium Chloride (Kdur) 40 meq PO UD PRN PRN Reason: Potssium is 3-3.5 Potassium Chloride (Kdur) 40 meq PO UD PRN PRN Reason: Potassium < 3 Senna (Senokot) 2 tab PO DAILYP PRN PRN Reason: Constipation Sodium Chloride (Saline Flush) 10 ml IV Q8 [facility] Last Admin: 06/21/19 06:15 Dose: Not Given Documented by: Medical - PN: A/P - Time Spent With Patient Total time spent is greater than 50% in coordination of care (as documented) at patient's floor/unit and/or counseling patient: - Narrative A/P Narrative: A: *PNA (Left Lower Lobe Lobar pneumonia- will take weeks to resolve), 2/2 post- influenza: most-likely Streptococcus -PCT improving, MRSA screen neg, -CT chest demonstrating entire LLL involvement -Sputum stain with GPC in chains/pairs and GNB *Sepsis: -leukocytosis improving, lactic acidosis resolved, intermittent fevers, tachycardia improved -BC/SC neg, sputum stain with GPC in chains/pairs and GNB *Lethargy/Gen weakness: improved *Pleuritic Left lower-lat chest pain: 2/2 above, slowly improving *Influenza B (+): *Volume depletion: resolved *Hypokalemia: improved P: -levaquin/zosyn - deescalate -pending BC -Tamiflu -Replete electrolytes -pt -ppx: Lovenox Medical - PN: Qual - VTE Deep Vein Thrombosis/Pulmonary Embolism Present on Admission: No
[2019-06-21] MEDS: DOCUSATE SODIUM 100 MG CAPSULE PO SCH ×2 (09:19→19:36)
[2019-06-21] MEDS: LEVOFLOXACIN 750 MG/150 ML BAG IV SCH (09:21)
[2019-06-21] MEDS: OSELTAMIVIR PHOSPHATE 75 MG CAPSULE PO SCH ×2 (09:38→19:35)
[2019-06-21] MEDS: ENOXAPARIN 40 MG/0.4 ML SYRINGE SQ SCH (09:39)
--- NOTE | 2019-06-21 11:09 | Discharge Summary ---
Medical - DS: Prov Patient information: Note initiated : 06/21/19 at 11:07 am Service Date, if different from initiated Date: [] Patient: Raul Perez 54 y/o M admitted on 06/18/19 for Productive Cough, Congestion. Chief Complaint: [] Date of admission: 06/18/19 14:58 Discharge date: 06/23/19 Primary care physician: PCP No Consults: 06/18/19 14:06 Consult to Physician [CONS] Stat Comment: Consulting Provider: Alexander No Reason For Exam: Physician to Consult Medical - DS: Meds - Discharge Medications Prescriptions: Amoxicillin/Potassium Clav [Augmentin] 875 mg PO Q12H #10 tab HYDROcodone/APAP 5/325MG [[place] 5-325Mg] 1 tab PO Q8HP PRN #10 tab PRN Reason: Pain Level 3-6 Active and Home Medications: Home Medications Levofloxacin [Levaquin] 750 mg PO DAILY #10 tab 06/18/19 [Rx Confirmed 06/18/19 Last Taken Unknown] Medical - DS: Hosp Hospital Course: A: *PNA (Left Lower Lobe Lobar pneumonia- will take weeks to resolve), 2/2 post- influenza: most-likely Streptococcus *Sepsis: *Lethargy/Gen weakness: improved *Pleuritic Left lower-lat chest pain: 2/2 above, slowly improving *Influenza B (+): *Volume depletion: resolved *Hypokalemia: improved Mr. Perez is a 54 year old M The ED with weakness malaise cough shortness of breath. Patient is about 2 weeks ago son had the flu and he developed similar symptoms including body aches headache weakness. At one point he felt he was getting better and then he suddenly became worse developing a productive cough worsening headache increased weakness. And into [facility] on the and was discharged with supportive care. Presented to our ED on started on Levaquin but today feeling much worse than yesterday. He feels like he can barely stand and steady almost fell when he when he stood up to go the bathroom. Cough is productive of thick yellow-green sputum. Feels short of breath. He has a left lower lateral chest wall pain which is described as dull achy as well as sharp and is constant with nothing improving. He has occasional nausea. Planes of lightheadedness. Chest x-ray from yesterday shows moderate sized left lower lobe infiltrate. His pro-Giovani is elevated at 5 and his lactate was elevated 3.2. Leukocytosis of 25. 06/19 Slept okay. Feeling better today. Left lower lateral chest pain improving. Has some nausea but no vomiting. Occasional coughing. Denies shortness of breath. 06/20 Coughing productive sputum as usual. Poor sleep because of cough and left chest pleuritic pain still severe at times. Leukocytosis slowly improving. 06/21 Still has cough productive but slowly improving. Shortness of breath with deep breathing otherwise improved. Pleuritic chest pain is improving slowly. Laboratory improving. Still intermittent fevers. Did have an episode of diarrhea this morning. Feeling better overall. 06/22 Still productive cough. Shortness of breath present. Gradual day-to-day improvement. Is afebrile last night. White blood cells increased slightly today. 06/23 No overnight events. Patient continues to improve. Stable for discharge. Follow-up closely with primary care provider and follow-up CT imaging in 4 weeks recommended. Discharge diagnosis: Left lower lobe lobar pneumonia sepsis influenza B - Time Spent with Patient Total time spent providing and/or coordinating discharge services: Greater than 30 minutes Medical - DS: Exam - Constitutional Vitals: Vital Signs Temp Pulse Resp BP Pulse Ox 06/21/19 08:11 98 F 81 20 136/96 93 06/21/19 04:00 101.6 F H 98 H 22 138/80 92 06/21/19 00:00 100.6 F H 81 16 145/94 92 06/20/19 22:29 99.2 F H 77 22 148/96 97 06/20/19 20:00 22 96 06/20/19 16:23 99.2 F H 139/93 06/20/19 16:21 81 96 06/20/19 16:00 98.7 F 22 139/93 97 06/20/19 11:31 103 H 97 06/20/19 11:28 98.4 F 86 20 121/90 94 Intake and Output 06/20/19 06/21/19 06/21/19 21:59 05:59 13:59 Intake Total 150 50 650 Output Total 650 525 800 Balance -500 -475 -150 Intake: IV 150 50 50 Zosyn 3.375 gm In Dextrose 5% 50 50 50 in Water 50 ml @ 100 mls/hr IV Q6H [facility] Rx#:[id number] Oral 600 Output: Urine Catheter Amount 325 Void Amount 650 200 800 Other: Meal Breakfast Percent of Meal Consumed 25% Feeding Ability Independent Urine Appearance Clear Clear Urine Color Straw Dark Yellow Bright Yellow Urine Odor Normal Normal Stool Size Moderate Stool Color Brown Stool Consistency Loose # Voids 275 # Bowel Movements 1 Weight 73.482 kg Medical - DS: Data Labs on day of discharge: Labs from last 24 hours 06/21/19 06/21/19 06/20/19 04:20 04:20 17:28 WBC 15.8 H RBC 4.27 L Hgb 12.7 L Hct 37.5 L MCV 87.7 MCH 29.7 MCHC 33.8 RDW 15.3 H Plt Count 305 MPV 6.7 L Gran % 81.6 H Lymph % (Auto) 10.6 L [place] % (Auto) 6.6 Eos % (Auto) 1.1 Baso % (Auto) 0.1 Gran # 12.9 H Lymph # (Auto) 1.7 [place] # (Auto) 1.0 H Eos # (Auto) 0.2 Baso # (Auto) 0 Sodium 134 Potassium 3.6 3.8 Chloride 99 Carbon Dioxide 23 Anion Gap 12.0 BUN 15 Creatinine 0.8 GFR Calculation 102 Glucose 81 Calcium 8.5 L Ur Strep pneumoniae Ag 06/20/19 17:05 WBC RBC Hgb Hct MCV MCH MCHC RDW Plt Count MPV Gran % Lymph % (Auto) [place] % (Auto) Eos % (Auto) Baso % (Auto) Gran # Lymph # (Auto) [place] # (Auto) Eos # (Auto) Baso # (Auto) Sodium Potassium Chloride Carbon Dioxide Anion Gap BUN Creatinine GFR Calculation Glucose Calcium Ur Strep pneumoniae Ag Negative Preliminary micro results at discharge 06/18/19 13:03 Blood Culture - Preliminary Blood 06/18/19 12:55 Blood Culture - Preliminary Blood Medical - DS: A/P - Patient/Caregiver Discharge Instructions Activity: increase activity as tolerated Diet: Regular Diet Additional Instructions: Recommend follow-up CT chest imaging in 4 weeks. Follow-up with PCP or chest clinic in 4 weeks. Prescriptions: Amoxicillin/Potassium Clav [Augmentin] 875 mg PO Q12H #10 tab HYDROcodone/APAP 5/325MG [[place] 5-325Mg] 1 tab PO Q8HP PRN #10 tab PRN Reason: Pain Level 3-6 - Follow up Plan Follow up with: No,PCP [Primary Care Provider] - Disposition: Home, Self-Care Prognosis: Fair Rehab Potential: Fair Overall status at discharge: patient is progressing back to baseline Medical - DS: Qual - VTE Deep Vein Thrombosis/Pulmonary Embolism Present on Admission: No
[2019-06-21] MEDS: ONDANSETRON 4 MG/2 ML VIAL IV PRN (13:04)
[2019-06-21] MEDS: LACTOBACILLUS 1 CAPSULE PO SCH (19:35)
[2019-06-21] MEDS: BENZONATATE 100 MG CAPSULE PO PRN (19:36)
[2019-06-22] MEDS: HYDROcodone/APAP 5/325MG TABLET PO PRN ×2 (05:41→16:37)
[2019-06-22] MEDS: BENZONATATE 100 MG CAPSULE PO PRN ×2 (05:41→20:30)
[2019-06-22 06:00] LABS: Basophils # (Auto) 0 K/mcL (0.0-0.3); Basophils % (Auto) 0.3 % (0.0-2.0); Eosinophils # (Auto) 0.2 K/mcL (0.0-0.7); Eosinophils % (Auto) 1.1 % (0.0-7.0); Granulocytes % (Auto) 76.8 % (38.0-78.0); Hematocrit 36.3 % (41.0-55.0); Hemoglobin 12.3 g/dL (13.5-16.5); Lymphocytes # (Auto) 2.5 K/mcL (1.5-4.8); Lymphocytes % (Auto) 14.8 % (15.5-49.0); Mean Cell Volume 87.3 fL (80.0-100.0); Mean Platelet Volume 6.7 fL (7.4-10.4); Monocytes # (Auto) 1.2 K/mcL (0.1-0.9); Platelet Count 320 K/mcL (140-440); RBC 4.15 M/mcL (4.50-5.90); Red Cell Distribution Width 15.2 % (11.5-14.5); WBC 16.6 K/mcL (4.5-11.0)
[2019-06-22 06:14] LABS: Blood Urea Nitrogen 11 mg/dl (6-20); Calcium 8.2 mg/dl (8.6-10.4); Carbon Dioxide 23 mmol/L (22-30); Chloride 98 mmol/L (96-108); Glomerular Filtration Rate 108; Glucose 90 mg/dL (70-105)
[2019-06-22] MEDS: 0.9 % SODIUM CHLORIDE 10 ML SYRINGE IV SCH ×3 (06:38→20:30)
[2019-06-22] MEDS: PIPERACILLIN SODIUM/TAZOBACTAM 3.375 GM in DEXTROSE 5% IN WATER 50 ML IV SCH (06:38)
--- NOTE | 2019-06-22 07:59 | Internal Med Progress Note ---
Medical - PN: Subj Patient information: Note initiated : 06/22/19 at 7:57 am Service Date, if different from initiated Date: [] Patient: Raul Perez a 54 y/o M admitted on 06/18/19 for Productive Cough, Congestion. Chief Complaint: [] Interval history: Mr. Perez is a 54 year old M The ED with weakness malaise cough shortness of breath. Patient is about 2 weeks ago son had the flu and he developed similar symptoms including body aches headache weakness. At one point he felt he was getting better and then he suddenly became worse developing a productive cough worsening headache increased weakness. And into [facility] on the and was discharged with supportive care. Presented to our ED on started on Levaquin but today feeling much worse than yesterday. He feels like he can barely stand and steady almost fell when he when he stood up to go the bathroom. Cough is productive of thick yellow-green sputum. Feels short of breath. He has a left lower lateral chest wall pain which is described as dull achy as well as sharp and is constant with nothing improving. He has occasional nausea. Planes of lightheadedness. Chest x-ray from yesterday shows moderate sized left lower lobe infiltrate. His pro-Giovani is elevated at 5 and his lactate was elevated 3.2. Leukocytosis of 25. 06/19 Slept okay. Feeling better today. Left lower lateral chest pain improving. Has some nausea but no vomiting. Occasional coughing. Denies shortness of breath. 06/20 Coughing productive sputum as usual. Poor sleep because of cough and left chest pleuritic pain still severe at times. Leukocytosis slowly improving. 06/21 Still has cough productive but slowly improving. Shortness of breath with deep breathing otherwise improved. Pleuritic chest pain is improving slowly. Laboratory improving. Still intermittent fevers. Did have an episode of diarrhea this morning. Feeling better overall. 06/22 Still productive cough. Shortness of breath present. Gradual day-to-day improvement. Is afebrile last night. White blood cells increased slightly today. Review of Systems: denies headache/fever/chills/nausea/vomiting/abdominal pain. Otherwise see above. - Constitutional Vitals: Vital Signs Temp Pulse Resp BP Pulse Ox 98.4 F 98 H 20 110/76 96 06/21/19 23:15 06/21/19 23:15 06/21/19 23:15 06/21/19 23:15 06/21/19 23:15 Period Temp Pulse Resp BP Sys/Rm Pulse Ox Last 24 Hr 98 F-98.9 F 66-103 20-22 110-153/76-96 93-97 Intake and Output 06/21/19 06/22/19 06/22/19 21:59 05:59 13:59 Intake Total 50 50 2 Output Total 400 300 Balance -350 -250 2 Weight 74.162 kg Intake & Output: Intake & Output 06/21/19 06/22/19 06/22/19 21:59 05:59 13:59 Intake Total 50 50 2 Output Total 400 300 Balance -350 -250 2 Weight 74.162 kg Intake: IV 50 50 2 Zosyn 3.375 gm In Dextrose 5% 50 50 2 in Water 50 ml @ 100 mls/hr IV Q6H [facility] Rx#:[id number] Output: Void Amount 400 300 Other: Urine Appearance Clear Urine Color Bright Yellow Urine Odor Normal # Voids 1 Exam: General: Alert, Awake, No acute Distress Eyes/N/T: EOMI, Head/Neck: neck supple, CV: RRR, No murmurs, Pulm: mild rhonchi LLL and diminished, no wheezing Abd: soft, nontender, +BS x4 Ext: no clubbing/cyanosis/edema Neuro: Alert, no focal deficits, moves all extremities, Skin: warm/dry Medical - PN: Obj Da - Labs CBC & Chem 7: 06/22/19 04:45 06/22/19 04:45 Labs: Abnormal Lab Results 06/22/19 06/22/19 06/21/19 04:45 04:45 04:20 WBC 16.6 H RBC 4.15 L Hgb 12.3 L Hct 36.3 L RDW 15.2 H MPV 6.7 L Gran % Lymph % (Auto) 14.8 L Gran # 12.7 H [place] # (Auto) 1.2 H Seg Neutrophils % Lymphocytes % RBC Morphology Anisocytosis Sodium 132 L Potassium Uric Acid Calcium 8.2 L 8.5 L Phosphorus Direct Bilirubin GGT Alkaline Phosphatase Lactate Dehydrogenase Albumin Globulin Albumin/Globulin Ratio 06/21/19 06/20/19 06/20/19 04:20 04:15 04:15 WBC 15.8 H 18.9 H RBC 4.27 L 4.00 L Hgb 12.7 L 11.8 L Hct 37.5 L 35.4 L RDW 15.3 H 15.4 H MPV 6.7 L 6.9 L Gran % 81.6 H Lymph % (Auto) 10.6 L Gran # 12.9 H [place] # (Auto) 1.0 H Seg Neutrophils % 84 H Lymphocytes % 8 L RBC Morphology Abnorm A Anisocytosis Few A Sodium Potassium 2.7 L* Uric Acid 2.4 L Calcium 8.1 L Phosphorus 2.5 L Direct Bilirubin 0.5 H GGT 91 H Alkaline Phosphatase 158 H Lactate Dehydrogenase 305 H Albumin 2.0 L Globulin 3.9 H Albumin/Globulin Ratio 0.5 L Meds: Medications Acetaminophen (Tylenol) 650 mg PO Q6HP PRN PRN Reason: PAIN/FEVER > 101 Hydrocodone Bitart/Acetaminophen ([place] 5/325mg) 1 tab PO Q4HP PRN PRN Reason: PAIN LEVEL 3-6 Last Admin: 06/22/19 05:41 Dose: 1 tab Documented by: Albuterol/Ipratropium (Duoneb) 3 ml NEB Q4HP PRN PRN Reason: Shortness Of Breath Benzonatate (Tessalon) 200 mg PO TIDP PRN PRN Reason: Cough Last Admin: 06/22/19 05:41 Dose: 200 mg Documented by: Docusate Sodium (Colace) 100 mg PO BID [facility] Last Admin: 06/21/19 19:36 Dose: 100 mg Documented by: Enoxaparin Sodium (Lovenox) 40 mg SQ DAILY [facility] Last Admin: 06/21/19 09:39 Dose: 40 mg Documented by: Potassium Chloride 40 meq/ (Dextrose) 520 mls @ 130 mls/hr IV UD PRN PRN Reason: Potassium < 3 Levofloxacin (Levaquin) 750 mg in 150 mls @ 100 mls/hr IV DAILY [facility] Last Infusion: 06/21/19 11:17 Dose: Infused Documented by: Magnesium Sulfate (Magnesium Sulfate) 2 gm in 50 mls @ 50 mls/hr IV UD PRN PRN Reason: Magnesium </= 1.6 Acetaminophen (Ofirmev) 1,000 mg in 100 mls @ 130 mls/hr IV Q6HP PRN; Protocol PRN Reason: PAIN/FEVER > 101 Last Infusion: 06/20/19 19:17 Dose: Infused Documented by: Piperacillin Sod/Tazobactam (Sod 3.375 gm/ Dextrose) 50 mls @ 100 mls/hr IV Q6H [facility]; Protocol Last Infusion: 06/22/19 06:39 Dose: 100 mls/hr Documented by: Lactobacillus Rhamnosus (Culturelle) 1 cap PO BID [facility] Last Admin: 06/21/19 19:35 Dose: 1 cap Documented by: Morphine Sulfate (Morphine) 1 - 4 mg IV Q3HP PRN; Protocol PRN Reason: Per Pain Protocol Last Admin: 06/21/19 19:34 Dose: 2 mg Documented by: Ondansetron HCl (Zofran) 4 mg IV Q4HP PRN PRN Reason: Nausea And Vomiting Last Admin: 06/21/19 13:04 Dose: 4 mg Documented by: Oseltamivir Phosphate (Tamiflu) 75 mg PO BID [facility] Last Admin: 06/21/19 19:35 Dose: 75 mg Documented by: Polyethylene Glycol (Miralax) 17 gm PO DAILYP PRN PRN Reason: Constipation Potassium Chloride (Kdur) 40 meq PO UD PRN PRN Reason: Potssium is 3-3.5 Potassium Chloride (Kdur) 40 meq PO UD PRN PRN Reason: Potassium < 3 Senna (Senokot) 2 tab PO DAILYP PRN PRN Reason: Constipation Sodium Chloride (Saline Flush) 10 ml IV Q8 [facility] Last Admin: 06/22/19 06:38 Dose: 10 ml Documented by: Medical - PN: A/P - Time Spent With Patient Total time spent is greater than 50% in coordination of care (as documented) at patient's floor/unit and/or counseling patient: - Narrative A/P Narrative: A: *PNA (Left Lower Lobe Lobar pneumonia- will take weeks to resolve), 2/2 post- influenza: most-likely Streptococcus -PCT improving, MRSA screen neg, -CT chest demonstrating entire LLL involvement -Sputum stain with GPC in chains/pairs and GNB *Sepsis: -leukocytosis improving but slight bump today, lactic acidosis resolved, intermittent fevers but none o/n, tachycardia improving -BC/SC neg, sputum stain with GPC in chains/pairs and GNB *Lethargy/Gen weakness: improved *Pleuritic Left lower-lat chest pain: 2/2 above, slowly improving *Influenza B (+): *Volume depletion: resolved *Hypokalemia: improved P: -levaquin/zosyn - deescalate to levaquin only -Tamiflu last does tomorrow morning -Replete electrolytes -pt -likely d/c in AM after f/u CBC/labs -ppx: Lovenox Medical - PN: Qual - VTE Deep Vein Thrombosis/Pulmonary Embolism Present on Admission: No
[2019-06-22] MEDS: LEVOFLOXACIN 750 MG/150 ML BAG IV SCH (08:49)
[2019-06-22] MEDS: OSELTAMIVIR PHOSPHATE 75 MG CAPSULE PO SCH ×2 (08:50→20:30)
[2019-06-22] MEDS: ENOXAPARIN 40 MG/0.4 ML SYRINGE SQ SCH (08:50)
[2019-06-22] MEDS: DOCUSATE SODIUM 100 MG CAPSULE PO SCH ×2 (09:41→20:30)
[2019-06-22] MEDS: ONDANSETRON 4 MG/2 ML VIAL IV PRN (10:03)
[2019-06-22] MEDS: LACTOBACILLUS 1 CAPSULE PO SCH ×2 (10:04→20:29)
[2019-06-22] MEDS: SODIUM CHLORIDE 1 GM TABLET PO SCH ×2 (10:13→16:37)
[2019-06-23] MEDS: HYDROcodone/APAP 5/325MG TABLET PO PRN (00:25)
[2019-06-23] MEDS: 0.9 % SODIUM CHLORIDE 10 ML SYRINGE IV SCH (05:28)
[2019-06-23 06:36] LABS: Basophils # (Auto) 0 K/mcL (0.0-0.3); Basophils % (Auto) 0.3 % (0.0-2.0); Eosinophils # (Auto) 0.3 K/mcL (0.0-0.7); Eosinophils % (Auto) 1.8 % (0.0-7.0); Granulocytes % (Auto) 68.2 % (38.0-78.0); Hematocrit 35.8 % (41.0-55.0); Lymphocytes # (Auto) 3.2 K/mcL (1.5-4.8); Lymphocytes % (Auto) 21.6 % (15.5-49.0); Mean Corpuscular HGB Conc 33.4 g/dL (31.0-36.0); Mean Platelet Volume 6.9 fL (7.4-10.4); Monocytes # (Auto) 1.2 K/mcL (0.1-0.9); Monocytes % (Auto) 8.1 % (1.0-12.0); Platelet Count 349 K/mcL (140-440); RBC 4.03 M/mcL (4.50-5.90); WBC 14.6 K/mcL (4.5-11.0)
[2019-06-23 07:04] LABS: Blood Urea Nitrogen 12 mg/dl (6-20); Calcium 8.3 mg/dl (8.6-10.4); Carbon Dioxide 23 mmol/L (22-30); Chloride 101 mmol/L (96-108); Glomerular Filtration Rate 115; Glucose 98 mg/dL (70-105)
[2019-06-23] MEDS: ENOXAPARIN 40 MG/0.4 ML SYRINGE SQ SCH (09:19)
[2019-06-23] MEDS: DOCUSATE SODIUM 100 MG CAPSULE PO SCH (09:19)
[2019-06-23] MEDS: OSELTAMIVIR PHOSPHATE 75 MG CAPSULE PO SCH (09:19)
[2019-06-23] MEDS: LACTOBACILLUS 1 CAPSULE PO SCH (09:20)
[2019-06-23] MEDS: LEVOFLOXACIN 750 MG/150 ML BAG IV SCH (09:30)
== END 2019-06-23 11:35 | disposition home or self-care (01) | DRG 193 ==
LOC: ED 10:44 → ICU 14:58 → MEDSUR 06-21 10:03
PROVIDERS: ADMIT Internal Medicine; ATTEND Internal Medicine